=== PATIENT | male | born 1950 | race Caucasian/White ===

== ENCOUNTER 2017-11-05 06:24 | Emergency (ER) | payer OTHER, MEDICAID ==
[2017-11-05] MEDS ORDERED: ONDANSETRON 4 MG/2 ML VIAL IVP ONE ×2 (06:33→07:26)
[2017-11-05] MEDS ORDERED: NS 1,000 ML IV ONE ×3 (06:33→09:50)
[2017-11-05] MEDS ORDERED: PROMETHAZINE HCL 25 MG/ML INJ IVP ONE (06:42)
[2017-11-05 06:55] LABS: PLATELET COUNT 207 10^3/uL (150-400)
[2017-11-05] MEDS ORDERED: HYDROmorphONE/DILAUDID 2 MG/ML INJ IVP ONE (07:26)
--- NOTE | 2017-11-05 07:27 | EDPHY ---
HPI/HX/ROS/PE/MDM Narrative: CHIEF COMPLAINT: "I'm sick to my stomach" HPI: The patient is a 67 y/o male with hepatitis C and prior episode of pancreatitis arriving with a family member complaining of mid abdominal pain and vomiting for the last couple days. He is visiting from [place] and scheduled to fly home tomorrow. He was evaluated at [facility] yesterday for knee pain and discharged with a script for Oxycodone. He has been unable to keep this down due to vomiting and reports he's had difficulty drinking water as well. He describes his abdominal pain as a "spasm" across his mid abdomen that feels similar to his prior episode of pancreatitis 2 years ago. He does not remember what they attributed his pancreatitis to at that time. He has tried using Zofran and marijuana for his nausea and vomiting without improvement. He has been on Suboxone previously. He has had a cholecystectomy, but denies other abdominal surgeries. REVIEW OF SYSTEMS: Aside from elements discussed in the HPI, a comprehensive 10-point review of systems was reviewed and is negative. PMH: Hepatitis C, pancreatitis x1, cholecystectomy 2 years ago, right knee replacement 2 years ago SOCIAL HISTORY: Family member at bedside. From [place]. PHYSICAL EXAM: General:Patient is alert, in no acute distress. ENT:Eyes are normal to inspection. ENT inspection normal. Neck: Normal inspection. Full range of motion. Respiratory:No respiratory distress. Breath sounds normal bilaterally. Cardiovascular: Regular rate and rhythm. Strong peripheral pulses. Normal cap refill. Abdomen:The abdomen has LLQ tenderness to palpation. There are no peritoneal signs. Back: Normal to inspection. No tenderness to palpation. Skin: Normal color. No rash. Warm and dry. Extremities: Normal appearance. Full range of motion. Neuro: Oriented x3. Normal motor function. Normal sensory function. ED Course: 1L IV NS, 4mg IV Zofran ordered. This is a 67 y/o male with Hepatitis C and history of pancreatitis who presents with a 2-day history of mid-abdominal pain, nausea, and vomiting. He has LLQ tenderness on exam. Plan for IV, labs, UA, abdominal CT, and symptom management. 1L IV NS, 4mg IV Zofran, 1mg IV Dilaudid ordered. Abdominal CT: No comparison available. Intra and extra hepatic ductal dilitation noted. No obstruction. Inflammation of jejunum noted. I discussed results with the patient and recommended admission and surgical consultation. The patient refuses this, as he would like to make his plane flight home later today. MDM: This patient presents with recurrence of abdominal pain and vomiting. I see no sign of emergent surgical pathology on exam and workup. The patient is still symptomatic and understands that the etiology of his symptoms is unknown, but he would like to be discharged to make his plane flight. He appears sober and competent to make this decision. - Data Points Imaging Results: Imaging Impressions Abdomen CT 11/05/17 07:26 Impression: 1. Status post cholecystectomy with intra- and extrahepatic bile duct dilatation. An ampullary stricture is not excluded. There is no choledocholithiasis or pancreatic head mass observed. 2. Coronary artery atherosclerotic calcifications. 3. Suspect low-grade esophagitis. 4. A mild regional jejunal enteritis is not excluded. 5. Mild prostatomegaly. 6. Mild sigmoid colon diverticulosis, without active inflammation. Findings were discussed with Avery Jolly MD at 8:27, on 11/05/2017. Imaging: Discussed imaging studies w/ scallop cutter Radiologist, I viewed and interpreted images myself Laboratory Results: Laboratory Results 11/05/17 06:45 11/05/17 06:45 11/05/17 11/05/17 11/05/17 07:10 06:45 06:45 WBC 8.14 10^3/uL 10^3/uL (3.80-9.50) RBC 5.22 10^6/uL 10^6/uL (4.40-6.38) Hgb 16.5 g/dL g/dL (13.7-17.5) Hct 47.2 % % (40.0-51.0) MCV 90.4 fL fL (81.5-99.8) MCH 31.6 pg pg (27.9-34.1) MCHC 35.0 g/dL g/dL (32.4-36.7) RDW 13.0 % % (11.5-15.2) Plt Count 207 10^3/uL 10^3/uL (150-400) MPV 9.6 fL fL (8.7-11.7) Neut % (Auto) 81.3 % H % (39.3-74.2) Lymph % (Auto) 12.3 % L % (15.0-45.0) Bibb % (Auto) 5.7 % % (4.5-13.0) Eos % (Auto) 0.1 % L % (0.6-7.6) Baso % (Auto) 0.2 % L % (0.3-1.7) Nucleat RBC Rel Count 0.0 % % (0.0-0.2) Absolute Neuts (auto) 6.62 10^3/uL H 10^3/uL (1.70-6.50) Absolute Lymphs (auto) 1.00 10^3/uL 10^3/uL (1.00-3.00) Absolute Monos (auto) 0.46 10^3/uL 10^3/uL (0.30-0.80) Absolute Eos (auto) 0.01 10^3/uL L 10^3/uL (0.03-0.40) Absolute Basos (auto) 0.02 10^3/uL 10^3/uL (0.02-0.10) Absolute Nucleated RBC 0.00 10^3/uL 10^3/uL (0-0.01) Immature Gran % 0.4 % % (0.0-1.1) Immature Gran # 0.03 10^3/uL 10^3/uL (0.00-0.10) Sodium 145 mEq/L mEq/L (135-145) Potassium 3.7 mEq/L mEq/L (3.5-5.2) Chloride 107 mEq/L mEq/L (97-110) Carbon Dioxide 21 mEq/l L mEq/l (22-31) Anion Gap 17 mEq/L H mEq/L (8-16) BUN 12 mg/dL mg/dL (7-23) Creatinine 0.6 mg/dL L mg/dL (0.7-1.3) Estimated GFR > 60 Glucose 130 mg/dL H mg/dL (70-100) Calcium 9.7 mg/dL mg/dL (8.5-10.4) Total Bilirubin 1.8 mg/dL H mg/dL (0.1-1.4) Conjugated Bilirubin 0.6 mg/dL H mg/dL (0.0-0.5) Unconjugated Bilirubin 1.2 mg/dL H mg/dL (0.0-1.1) AST 30 IU/L IU/L (17-59) ALT 29 IU/L IU/L (21-72) Alkaline Phosphatase 69 IU/L IU/L (38-126) Total Protein 7.1 g/dL g/dL (6.3-8.2) Albumin 4.3 g/dL g/dL (3.5-5.0) Lipase 46 IU/L IU/L (23-300) Urine Color YELLOW Urine Appearance CLEAR Urine pH 6.0 (5.0-7.5) Ur Specific [place] 1.024 (1.002-1.030) Urine Protein 1+ H (NEGATIVE) Urine Ketones 1+ H (NEGATIVE) Urine Blood NEGATIVE (NEGATIVE) Urine Nitrate NEGATIVE (NEGATIVE) Urine Bilirubin NEGATIVE (NEGATIVE) Urine Urobilinogen 4.0 EU H EU (0.2-1.0) Ur Leukocyte Esterase NEGATIVE (NEGATIVE) Urine RBC 1-3 /hpf /hpf (0-3) Urine WBC 1-3 /hpf /hpf (0-3) Ur Epithelial Cells TRACE /lpf /lpf (NONE-1+) Urine Mucus 1+ /lpf /lpf (NONE-1+) Urine Glucose NEGATIVE (NEGATIVE) Medications Given: Discontinued Medications Hydromorphone HCl (Dilaudid) 1 mg IVP EDNOW ONE Stop: 11/05/17 07:27 Last Admin: 11/05/17 07:29 Dose: 1 mg Sodium Chloride (Ns) 1,000 mls @ 0 mls/hr IV EDNOW ONE; Wide Open PRN Reason: Protocol Stop: 11/05/17 06:34 Last Admin: 11/05/17 06:46 Dose: 1,000 mls Sodium Chloride (Ns) 1,000 mls @ 0 mls/hr IV ONCE ONE PRN Reason: Wide Open Stop: 11/05/17 07:32 Last Admin: 11/05/17 07:33 Dose: 1,000 mls Ondansetron HCl (Zofran) 4 mg IVP EDNOW ONE Stop: 11/05/17 06:34 Last Admin: 11/05/17 06:50 Dose: Not Given Ondansetron HCl (Zofran) 4 mg IVP EDNOW ONE Stop: 11/05/17 07:27 Last Admin: 11/05/17 07:29 Dose: 4 mg Promethazine HCl (Phenergan) 6.25 mg IVP ONCE ONE Stop: 11/05/17 06:43 Last Admin: 11/05/17 06:46 Dose: 6.25 mg General Initial Vital Signs: Initial Vital Signs Temperature (C) 36.7 C 11/05/17 06:26 Heart Rate 81 11/05/17 06:26 Respiratory Rate 18 11/05/17 06:26 Blood Pressure 141/86 H 11/05/17 06:26 O2 Sat (%) 98 11/05/17 06:26 O2 Delivery Mode Room Air Allergies/Adverse Reactions: No Known Allergies Allergy (Unverified 11/05/17 06:31) Home Medications: Medication Instructions Recorded Ondansetron Odt [Zofran Odt] 4 mg PO Q4PRN PRN #10 tab 11/05/17 Zofran 11/05/17 Departure - Departure Disposition: Home, Routine, Self-Care Clinical Impression: Abdominal pain Condition: Good Instructions: Ondansetron (By mouth), Acute Abdominal Pain (ED) Additional Instructions: We recommend you follow-up with your primary physician within 48 hr after arriving home. Return to the nearest emergency department for fever, severe pain, vomiting, inability to drink water or other concerns. Referrals: MADISYN JACOB PA-C [Other] - As per Instructions Prescriptions: Ondansetron Odt [Zofran Odt] 4 mg PO Q4PRN PRN #10 tab PRN Reason: Nausea Report Scribed for: Avery Jolly Report Scribed by: Jaclyn Silva Date of Report: 11/05/17 Time of Report: 06:52
[2017-11-05] MEDS ORDERED: IOPAMIDOL (ISOVUE-300) 100 ML BTL ONE (07:32)
[2017-11-05] MEDS ORDERED: ONDANSETRON 4MG PREPACK#2 BTL TAKEHOME ONE (09:55)
[2017-11-05 10:33] VITALS: BP 138/85
== END 2017-11-05 10:55 | disposition home or self-care (01) ==
DX: R10.32 Left lower quadrant pain (principal); E86.9 Volume depletion, unspecified; Z90.49 Acquired absence of other specified parts of digestive tract
CPT/HCPCS: 74177; 96361; 96374; 96375; 99285; J1170; J2405; J2550; Q9967